=== PATIENT | male | born 1990 | race American Indian/Alaskan Native ===

== ENCOUNTER 2020-11-18 09:34 | Emergency (ER) | payer OTHER ==
[2020-11-18 10:19] VITALS: BP 136/69
--- NOTE | 2020-11-18 11:16 | XRay Report ---
RIGHT HAND 3 VIEW(S) INDICATION / CLINICAL INFORMATION: 3RD DIGIT finger pain/ SWOLLEN COMPARISON: None available. FINDINGS: BONES / JOINT(S): 1 mm bone fragment along the radial volar aspect of the PIP joint of the long finge r, may reflect a small avulsion fracture. No other acute fracture or dislocation is identified. No si gnificant arthritis. SOFT TISSUES: Soft tissue swelling about the third PIP joint. ADDITIONAL FINDINGS: None. Signer Name: Dominguez Mejia MD Signed: 11/18/2020 11:11 AM Workstation Name: [id number]
--- NOTE | 2020-11-18 11:33 | Emergency Department Report ---
ED Upper Extremity Inj HPI - General Chief Complaint: Extremity Problem,Nontraumatic Stated Complaint: FINGER SWOLLEN Time Seen by Provider: 11/18/20 10:30 Source: patient Mode of arrival: Ambulatory Limitations: No Limitations - History of Present Illness Initial Comments: This is a 30-year-old male nontoxic, well nourished in appearance, no acute sign s of distress presents to the ED with c/o of right middle finger pain 1 week. Patient that has history of injury about 20 years ago but was at work and was heavy lifting and developed sudden pain. Patient denies any other injuries or trauma. Patient denies any numbness, tingling, fever, chills, nausea, vomiting, chest pain, shortness of breath, headache, stiff neck. Patient denies any joint swelling or joint redness. Patient denies decreased range of motion. Patient denies any allergies. MD Complaint: Injury to:: right, finger -: week(s) Other Extremity Injury: Fingers: Right Other Injuries: none Place: work Severity scale (0 -10): 3 Improves With: immobilization Worsens With: movement of extremity Associated Symptoms: denies other symptoms. denies: weakness, numbness, neck pain, suspects foreign body, nausea/vomiting, heard/felt popping sensat - Related Data Previous Rx's Medication Instructions Recorded Last Taken Type Naproxen 500 mg PO Q12H PRN #12 tablet 11/18/20 Unknown Rx ED Review of Systems ROS: Stated complaint: FINGER SWOLLEN Other details as noted in HPI Comment: All other systems reviewed and negative Constitutional: denies: chills, fever Eyes: denies: eye pain, eye discharge, vision change ENT: denies: ear pain, throat pain Respiratory: denies: cough, shortness of breath, wheezing Cardiovascular: denies: chest pain, palpitations Endocrine: no symptoms reported Gastrointestinal: denies: abdominal pain, nausea, diarrhea Genitourinary: denies: urgency, dysuria Musculoskeletal: denies: back pain, joint swelling, arthralgia Skin: denies: rash, lesions Neurological: denies: headache, weakness, paresthesias Psychiatric: denies: anxiety, depression Hematological/Lymphatic: denies: easy bleeding, easy bruising ED Past Medical Hx - Past Medical History Previous Medical History?: Yes Hx Asthma: Yes - Surgical History Past Surgical History?: No - Medications Home Medications: Home Medications Medication Instructions Recorded Confirmed Last Taken Type Naproxen 500 mg PO Q12H PRN #12 tablet 11/18/20 Unknown Rx ED Physical Exam - General Limitations: No Limitations General appearance: alert, in no apparent distress - Head Head exam: Present: atraumatic, normocephalic - Eye Eye exam: Present: normal appearance - Neck Neck exam: Present: normal inspection, full ROM. Absent: lymphadenopathy - Respiratory Respiratory exam: Absent: respiratory distress - Cardiovascular Cardiovascular Exam: Present: regular rate - GI/Abdominal GI/Abdominal exam: Present: soft. Absent: distended, tenderness - Extremities Exam Extremities exam: Present: normal inspection, full ROM, tenderness, normal capillary refill. Absent: joint swelling - Expanded Upper Extremity Exam Right Shoulder Exam: Present: normal inspection, full ROM. Absent: tenderness, swelling Upper Arm exam: Present: normal inspection, full ROM. Absent: tenderness, swelling Elbow exam: Present: normal inspection, full ROM. Absent: tenderness, swelling Forearm Wrist exam: Present: normal inspection, full ROM. Absent: tenderness, swelling, abrasion, laceration, ecchymosis, deformity, crepidus, dislocation, erythema, tenderness over anatomical snuff box, pain with axial thumb loading Hand Wrist exam: Present: normal inspection, full ROM, tenderness, swelling. Absent: abrasion, laceration, ecchymosis, crepidus, dislocation, erythema, amputation, nail avulsion, subungual hematoma Hand L/R Back: 1 - pain here Vascular: Present: normal capillary refill. Absent: vascular compromise (Neurovascular within normal limits) - Back Exam Back exam: Present: normal inspection, full ROM - Neurological Exam Neurological exam: Present: alert, oriented X3, normal gait - Psychiatric Psychiatric exam: Present: normal affect, normal mood - Skin Skin exam: Present: warm, dry, intact, normal color. Absent: rash ED Course Vital Signs 11/18/20 10:16 Temperature 98.6 F Pulse Rate 74 Respiratory 18 Rate Blood Pressure 136/69 O2 Sat by Pulse 99 Oximetry - Reevaluation(s) Reevaluation #1: 11/18/20 11:33 Patient is speaking in full sentences with no signs of distress noted. ED Medical Decision Making - Radiology Data [facility] [address] [place] [address] XRay Report Signed Patient: ROMINA RICHARDSON MR# : [id number] : 1990 Acct:[id number] Age/Sex: 30 / M ADM Date: 11/18/20 Loc: ED Attending Dr: Ordering Physician: JACK YOUNG NP Date of Service: 11/18/20 Procedure(s): XR finger(s) 2+V RT Accession Number(s): [id number] cc: JACK YOUNG NP Fluoro Time In Minutes: RIGHT HAND 3 VIEW(S) INDICATION / CLINICAL INFORMATION: 3RD DIGIT finger pain/ SWOLLEN COMPARISON: None available. FINDINGS: BONES / JOINT(S): 1 mm bone fragment along the radial volar aspect of the PIP joint of the long finger, may reflect a small avulsion fracture. No other acute fracture or dislocation is identified. No significant arthritis. SOFT TISSUES: Soft tissue swelling about the third PIP joint. ADDITIONAL FINDINGS: None. Signer Name: Dominguez Mejia MD Signed: 11/18/2020 11:11 AM Workstation Name: [email or web address] Transcribed By: SB Dictated By: DOMINGUEZ MEJIA MD Electronically Authenticated By: DOMINGUEZ MEJIA MD Signed Date/Time: 11/18/20 1111 DD/ 1110 TD/TT: - Medical Decision Making This is a 30-year-old male that presents with right finger fracture. Patient is stable and was examined by me. Patient referred to orthopedic. X-ray has been obtained and dictated by the radiologist. Patient is notified of the x-ray report with noted by the patient. Patient does have normal range of motion with some tenderness and no joint swelling. No ecchymosis. no joint redness or swelling. Not warm to touch. No signs of cellulites present. Patient received a metal finger splint. Post splint assessment: neurovasular intact; normal cap refill <2 second; normal sensation; denies decreaed sensation; normal ROM of digits. Patient was instructed to RICE therapy. Patient is discharged with Naproxen. At time of discharge, the patient does not seem toxic or ill in ap pearance. No acute signs of distress noted. Patient agrees to discharge treatment plan of care. No further questions noted by the patient. Critical care attestation.: If time is entered above; I have spent that time in minutes in the direct care of this critically ill patient, excluding procedure time. ED Disposition Clinical Impression: Finger fracture, right Qualifiers: Encounter type: initial encounter Finger: middle finger Fracture type: closed Phalanx: middle Fracture alignment: nondisplaced Qualified Code(s): S62.652A - Nondisplaced fracture of middle phalanx of right middle finger, initial encounter for closed fracture Disposition: HOME / SELF CARE / HOMELESS Is pt being admited?: No Does the pt Need Aspirin: No Condition: Stable Instructions: Finger Fracture, Adult, [id number] Additional Instructions: Follow-up with a primary care doctor in 3-5 days or if symptoms worsen and continue return to emergency room as soon as possible. No physical activity that extremity until cleared by orthopedic doctor Prescriptions: Naproxen 500 mg PO Q12H PRN #12 tablet PRN Reason: Pain , Severe (7-10) Referrals: PRIMARY CAREMD [Primary Care Provider] - 3-5 Days LEXI HUBBARD MD [Staff Physician] - 3-5 Days Forms: Work/School Release Form(ED) Time of Disposition: 11:36
== END 2020-11-18 11:36 | disposition home or self-care (01) ==
LOC: ED 09:34
DX: S62.602A Fracture of unspecified phalanx of right middle finger, initial encounter for closed fracture (principal); J45.909 Unspecified asthma, uncomplicated; Z79.899 Other long term (current) drug therapy; X50.0XXA Overexertion from strenuous movement or load, initial encounter; Y93.89 Activity, other specified; Y92.89 Other specified places as the place of occurrence of the external cause; Y99.0 Civilian activity done for income or pay
CPT/HCPCS: 99283